=== PATIENT | male | born 1995 | race Caucasian/White ===

== ENCOUNTER 2016-12-15 23:52 | Emergency (ER) | payer BC ==
[~2016-12-15] VITALS: Ht 185.4 cm; Wt 81.8 kg
[~2016-12-15 23:52] MED LIST: NAPR-260 PO
[2016-12-15 23:56] VITALS: Ht 185.4 cm; Wt 81.8 kg
[2016-12-16 00:05] VITALS: BP 140/78; PULSE 100; RESP 24; TEMP 97.8
[2016-12-16] MEDS ORDERED: LORAZEPAM 2 MG INJ IM ONE (00:30)
--- NOTE | 2016-12-16 01:43 | ERD ---
ER Documentation Chief Complaint Date/Time DATE: 12/16/16 TIME: 01:42 Chief Complaint W/D FROM [facility], HAS RACING THOUGHTS DENIES SI/HI HPI This is a 21-year-old male says withdrawal from benzos. He states that is has racing thoughts. Denies suicidal or homicidal ideation. Denies auditory or visual hallucinations. ROS All systems reviewed and are negative except as per history of present illness. Medications Home Meds Active Scripts Naproxen* (Naprosyn*) 500 Mg Tablet, 500 MG PO BID Y for PAIN AND/OR INFLAMMATION, #20 TAB Prov:Ирина Mayfield PA-C 09/12/16 Allergies Allergies: Coded Allergies: No Known Allergy (Unverified , 08/08/16) PMhx/Soc Medical and Surgical Hx: pt denies Surgical Hx History of Surgery: No Anesthesia Reaction: No Hx Neurological Disorder: No Hx Respiratory Disorders: No Hx Cardiac Disorders: No Hx Psychiatric Problems: Yes (ANXIETY DISORDER) Hx Miscellaneous Medical Probl: No Hx Alcohol Use: Yes ("heavy drinker") Hx Substance Use: Yes (BENZO ABUSE) Hx Tobacco Use: Yes Smoking Status: Current every day smoker Physical Exam Vitals Vital Signs Date Time Temp Pulse Resp B/P Pulse Ox O2 Delivery O2 Flow Rate FiO2 12/16/16 00:05 97.8 100 24 140/78 100 Room Air 12/15/16 23:56 97.8 114 24 143/81 99 Physical Exam Const: [] Head: Atraumatic Eyes: Normal Conjunctiva ENT: Normal External Ears, Nose and Mouth. Neck: Full range of motion..~ No meningismus. Resp: Clear to auscultation bilaterally Cardio: Regular rate and rhythm, no murmurs Abd: Soft, non tender, non distended. Normal bowel sounds Skin: No petechiae or rashes Back: No midline or flank tenderness Ext: No cyanosis, or edema Neur: Awake and alert Psych: Normal Mood and Affect Results 24 hrs Current Medications Medications (Trade) Dose Ordered Sig/Cee Route PRN Reason Start Time Stop Time Status Last Admin Dose Admin Lorazepam (Ativan) 2 mg ONCE ONCE IM 12/16/16 00:30 12/16/16 00:31 DC 12/16/16 00:27 Procedures/MDM Medical decision-makin female benzodiazepine withdrawal. Patient is given Ativan here. Patient eloped prior to full treatment discharge. Upon elopement, patient was alert and oriented with goal oriented speech good decision-making capacity ability to negotiate the community. Departure Diagnosis: Primary Impression: Drug withdrawal Substance type: sedative, hypnotic or anxiolytic Qualified Code: F13.239 - Withdrawal from sedative, hypnotic, or anxiolytic drug Condition: Stable DIDI MALONE Dec 16, 2016 01:42
== END 2016-12-16 01:42 | disposition left against medical advice (07) ==
LOC: E/R 23:52
DX: F13.239 Sedative, hypnotic or anxiolytic dependence with withdrawal, unspecified (principal); F17.210 Nicotine dependence, cigarettes, uncomplicated
CPT/HCPCS: 96372; J2060; Z7502

== ENCOUNTER 2017-04-22 04:32 | Emergency (ER) | END 2017-04-22 06:26 | disposition home or self-care (01) | DX: F13.230 Sedative, hypnotic or anxiolytic dependence with withdrawal, uncomplicated (principal); F17.210 Nicotine dependence, cigarettes, uncomplicated | CPT/HCPCS: Z7502; Z7610 ==

== ENCOUNTER 2017-04-28 18:35 | Emergency (ER) | payer BC ==
[~2017-04-28] VITALS: Ht 175.3 cm; Wt 90.0 kg
[2017-04-28 18:41] VITALS: Ht 175.3 cm; Wt 90.0 kg
[2017-04-28] MEDS ORDERED: SOD CHLORIDE 0.9% 1,000 ML IV STA (18:45)
[2017-04-28 19:26] LABS: ADD SCAN DIFF NO
[2017-04-28 19:27] LABS: BASOPHIL # 0.1 10^3/ul (0.0-0.1); BASOPHILS % 0.7 % (0.0-2.0); EOSINOPHILS # 0.1 10^3/ul (0.0-0.5); EOSINOPHILS % 1.6 % (0.0-7.0); HEMOGLOBIN 13.1 g/dl (14.0-18.0); LYMPHOCYTES # 1.8 10^3/ul (0.8-2.9); LYMPHOCYTES % 22.7 % (15.0-51.0); MEAN CORPUSCULAR HEMOGLOBIN 28.7 pg (29.0-33.0); MEAN CORPUSCULAR HGB CONC 34.5 g/dl (32.0-37.0); MEAN CORPUSCULAR VOLUME 83.3 fl (82.0-101.0); MEAN PLATELET VOLUME 10.4 fl (7.4-10.4); MONOCYTE # 0.7 10^3/ul (0.3-0.9); MONOCYTES % 8.8 % (0.0-11.0); NEUTROPHIL # 5.3 10^3/ul (1.6-7.5); PLATELET COUNT 273 10^3/UL (140-415); RED BLOOD COUNT 4.56 10^6/ul (4.70-6.10); RED CELL DISTRIBUTION WIDTH 12.8 % (11.5-14.5); WHITE BLOOD COUNT 8.1 10^3/ul (4.8-10.8)
[2017-04-28 19:46] LABS: CALCIUM 9.6 mg/dl (8.4-10.2); CREATININE 0.69 mg/dl (0.61-1.24); POTASSIUM 3.8 mmol/L (3.5-5.1)
[2017-04-28] MEDS ORDERED: LORAZEPAM 2 MG INJ IV ONE (20:30)
[2017-04-28] MEDS ORDERED: LEVETIRACETAM 1000 MG (PMX) 100 ML IVPB ONE (20:30)
[2017-04-28 23:00] VITALS: BP 121/63; PULSE 96; RESP 22
--- NOTE | 2017-04-28 23:15 | ERD ---
ER Documentation Chief Complaint Date/Time DATE: 04/28/17 TIME: 23:11 Chief Complaint found on sidewalk ALOC, +ETOH, hx SZ although no witnessed sz today HPI This 21-year-old male presents emergency room with alcohol intoxication. Is brought in by paramedics for being found laying down in public office sidewalk. Patient had alcohol with him and smelled of alcohol. He states that he has seizures but is not sure if he had a seizure today. Admits to drinking for 2 hours. Denies any pain currently. Does not believe that he had any head injury. Knows that he intentionally down to try to sleep. ROS All systems reviewed and are negative except as per history of present illness. Medications Home Meds Active Scripts Naproxen* (Naprosyn*) 500 Mg Tablet, 500 MG PO BID Y for PAIN AND/OR INFLAMMATION, #20 TAB Prov:Ирина Mayfield PA-C 09/12/16 Allergies Allergies: Coded Allergies: No Known Allergy (Unverified , 08/08/16) PMhx/Soc Medical and Surgical Hx: Unable to obtain History of Surgery: No Anesthesia Reaction: No Hx Neurological Disorder: Yes (SEIZURE) Hx Respiratory Disorders: No Hx Cardiac Disorders: No Hx Psychiatric Problems: Yes (ANXIETY DISORDER) Hx Miscellaneous Medical Probl: No Hx Alcohol Use: Yes Smoking Status: Unknown if ever smoked Physical Exam Vitals Vital Signs Date Time Temp Pulse Resp B/P Pulse Ox O2 Delivery O2 Flow Rate FiO2 04/28/17 23:00 96 22 121/63 95 Room Air 04/28/17 20:38 96 20 104/55 98 Nasal Cannula 2.0 04/28/17 19:52 112 20 144/99 100 Nasal Cannula 2.0 04/28/17 18:41 98.8 118 17 113/52 98 Physical Exam Const: [] No acute distress Head: Atraumatic Eyes: Normal Conjunctiva, EOMI, PRL ENT: Normal External Ears, Nose and Mouth. Neck: Full range of motion..~ No meningismus. Resp: Clear to auscultation bilaterally Cardio: Mild regular tachycardia, no murmurs Abd: Soft, non tender, non distended. Normal bowel sounds Skin: No petechiae or rashes Back: No midline or flank tenderness Ext: No cyanosis, or edema Neur: Awake and alert and oriented 3, cranial nerves II through XII intact, appears intoxicated, slight slurred speech, cerebellar finger to nose normal Psych: Normal Mood and Affect Result Diagram: 04/28/17181404/28/171814 Results 24 hrs Laboratory Tests Test 04/28/17 18:15 04/28/17 19:32 White Blood Count 8.110^3/ul Red Blood Count 4.5610^6/ul Hemoglobin 13.1g/dl Hematocrit 38.0% Mean Corpuscular Volume 83.3fl Mean Corpuscular Hemoglobin 28.7pg Mean Corpuscular Hemoglobin Concent 34.5g/dl Red Cell Distribution Width 12.8% Platelet Count 75495^3/UL Mean Platelet Volume 10.4fl Neutrophils % 66.0% Lymphocytes % 22.7% Monocytes % 8.8% Eosinophils % 1.6% Basophils % 0.7% Nucleated Red Blood Cells % 0.0/100WBC Neutrophils # 5.310^3/ul Lymphocytes # 1.810^3/ul Monocytes # 0.710^3/ul Eosinophils # 0.110^3/ul Basophils # 0.110^3/ul Nucleated Red Blood Cells # 0.010^3/ul Sodium Level 146mmol/L Potassium Level 3.8mmol/L Chloride Level 102mmol/L Carbon Dioxide Level 21mmol/L Anion Gap 27 Blood Urea Nitrogen 8mg/dl Creatinine 0.69mg/dl Glucose Level 95mg/dl Lactic Acid Level 2.4mmol/L Calcium Level 9.6mg/dl Bedside Glucose 96mg/dL Current Medications Medications (Trade) Dose Ordered Sig/Cee Route PRN Reason Start Time Stop Time Status Last Admin Dose Admin Sodium Chloride 1,000 ml @ 1,000 mls/hr Q1H STAT IV 04/28/17 18:45 04/28/17 19:44 DC 04/28/17 19:03 Levetiracetam (Keppra 1,000mg/ 100ml (Pmx)) 100 ml @ 400 mls/hr ONCE ONCE IVPB 04/28/17 20:30 04/28/17 20:44 DC 04/28/17 20:29 Lorazepam (Ativan) 1 mg ONCE ONCE IV 04/28/17 20:30 04/28/17 20:31 DC 04/28/17 20:10 Procedures/MDM Acute alcohol intoxication. Possible seizure. Is unknown the patient actually had a seizure. Had very mild lactic acid elevation. Procedure hydrated with normal saline and loaded with Keppra 1 g. Patient became more sober and alert with time. After hours of observation was clinically sober. Stated that he felt well. Wanted to go home. No signs of trauma. Patient still has a negative neurological exam does not feel as though he had any trauma. Advising close primary care follow-up as well as strict return precautions to the ER. States that he has seizure medicine will take it when he gets home Departure Diagnosis: Primary Impression: Alcohol intoxication Additional Impression: Seizure Condition: Stable LANCE CANTOR DO Apr 28, 2017 23:15
== END 2017-04-28 23:44 | disposition home or self-care (01) ==
LOC: E/R 18:35
DX: F10.120 Alcohol abuse with intoxication, uncomplicated (principal); R56.9 Unspecified convulsions
CPT/HCPCS: 36415; 80048; 82962; 83605; 85025; 96374; 96375; J1953; J2060; J7030; Z7502

== ENCOUNTER 2017-04-29 04:14 | Emergency (ER) | payer BC ==
[~2017-04-29] VITALS: Ht 177.8 cm; Wt 86.5 kg
[2017-04-29 04:19] VITALS: Ht 177.8 cm; Wt 86.5 kg
[2017-04-29 05:15] LABS: ADD UMIC NO; UR ASCORBIC ACID NEGATIVE (NEGATIVE); UR BILIRUBIN (Dip) NEGATIVE (NEGATIVE); UR BLOOD (Dip) NEGATIVE (NEGATIVE); UR CLARITY CLEAR (CLEAR); UR COLOR YELLOW (YELLOW); UR GLUCOSE (Dip) NEGATIVE (NEGATIVE); UR KETONES (Dip) NEGATIVE (NEGATIVE); UR LEUKOCYTE ESTERASE (Dip) NEGATIVE Leu/ul (NEGATIVE); UR NITRITE (Dip) NEGATIVE (NEGATIVE); UR RBC 1 /HPF (0-5); UR SPECIFIC GRAVITY (Dip) 1.012 (1.003-1.030); UR TOTAL PROTEIN (Dip) NEGATIVE (NEGATIVE); UR UROBILINOGEN (Dip) NEGATIVE (NEGATIVE)
[2017-04-29 05:23] LABS: BARBITURATES POSITIVE (NEGATIVE); BENZODIAZEPINES NEGATIVE (NEGATIVE); CANNABINOIDS NEGATIVE (NEGATIVE); COCAINE NEGATIVE (NEGATIVE); OPIATES NEGATIVE (NEGATIVE)
[2017-04-29 05:29] LABS: ADD SCAN DIFF NO; BASOPHILS % 0.5 % (0.0-2.0); EOSINOPHILS # 0.1 10^3/ul (0.0-0.5); EOSINOPHILS % 1.3 % (0.0-7.0); HEMATOCRIT 41.1 % (42.0-52.0); HEMOGLOBIN 14.2 g/dl (14.0-18.0); LYMPHOCYTES # 2.5 10^3/ul (0.8-2.9); LYMPHOCYTES % 33.3 % (15.0-51.0); MEAN CORPUSCULAR HEMOGLOBIN 28.5 pg (29.0-33.0); MEAN CORPUSCULAR HGB CONC 34.5 g/dl (32.0-37.0); MEAN CORPUSCULAR VOLUME 82.5 fl (82.0-101.0); MEAN PLATELET VOLUME 10.3 fl (7.4-10.4); MONOCYTE # 0.7 10^3/ul (0.3-0.9); MONOCYTES % 8.5 % (0.0-11.0); NEUTROPHIL # 4.3 10^3/ul (1.6-7.5); NEUTROPHILS % 56.1 % (39.0-77.0); PLATELET COUNT 278 10^3/UL (140-415); RED BLOOD COUNT 4.98 10^6/ul (4.70-6.10); RED CELL DISTRIBUTION WIDTH 13.2 % (11.5-14.5); WHITE BLOOD COUNT 7.6 10^3/ul (4.8-10.8)
--- NOTE | 2017-04-29 05:48 | ERA ---
ER Documentation Chief Complaint Date/Time DATE: 04/29/17 TIME: 05:47 Chief Complaint pt found by security lying in west lobby; pt ALOC HPI Patient found straight line in the last lobby. Patient admits to drug use. He now says he is suicidal. Was seen earlier ROS All systems reviewed and are negative except as per history of present illness. Medications Home Meds Discontinued Scripts Naproxen* (Naprosyn*) 500 Mg Tablet, 500 MG PO BID Y for PAIN AND/OR INFLAMMATION, #20 TAB Prov:Ирина Mayfield PA-C 09/12/16 Allergies Allergies: Coded Allergies: No Known Allergy (Unverified , 08/08/16) PMhx/Soc History of Surgery: No Anesthesia Reaction: No Hx Neurological Disorder: Yes (SEIZURE) Hx Respiratory Disorders: No Hx Cardiac Disorders: No Hx Psychiatric Problems: Yes (ANXIETY DISORDER) Hx Miscellaneous Medical Probl: No Hx Alcohol Use: Yes (everyday) Smoking Status: Unknown if ever smoked Physical Exam Vitals Vital Signs Date Time Temp Pulse Resp B/P Pulse Ox O2 Delivery O2 Flow Rate FiO2 04/29/17 04:19 98.7 129 20 142/93 97 Physical Exam Const: [] Head: Atraumatic Eyes: Normal Conjunctiva ENT: Normal External Ears, Nose and Mouth. Neck: Full range of motion..~ No meningismus. Resp: Clear to auscultation bilaterally Cardio: Regular rate and rhythm, no murmurs Abd: Soft, non tender, non distended. Normal bowel sounds Skin: No petechiae or rashes Back: No midline or flank tenderness Ext: No cyanosis, or edema Neur: Awake and alert Psych: Normal Mood and Affect Results 24 hrs Laboratory Tests Test 04/29/17 04:49 Urine Color YELLOW Urine Clarity CLEAR Urine pH 6.0 Urine Specific [place] 1.012 Urine Ketones NEGATIVEmg/dL Urine Nitrite NEGATIVEmg/dL Urine Bilirubin NEGATIVEmg/dL Urine Urobilinogen NEGATIVEmg/dL Urine Leukocyte Esterase NEGATIVELeu/ul Urine Microscopic RBC 1/HPF Urine Microscopic WBC 1/HPF Urine Hemoglobin NEGATIVEmg/dL Urine Glucose NEGATIVEmg/dL Urine Total Protein NEGATIVEmg/dl Urine Opiates Screen NEGATIVE Urine Barbiturates POSITIVE Urine Amphetamines Screen NEGATIVE Urine Benzodiazepines Screen NEGATIVE Urine Cocaine Screen NEGATIVE Urine Cannabinoids NEGATIVE Procedures/MDM Patient's behavioral symptoms have stabilized while in the department. Patient is medically cleared and appropriate for psychiatric evaluation and work up. No e/o neurologic, toxic, infectious, or metabolic cause. Departure Diagnosis: Primary Impression: Acute psychosis Condition: Serious DIDI MALONE Apr 29, 2017 05:48
[2017-04-29 05:50] LABS: ALANINE AMINOTRANSFERASE 48 IU/L (13-69); ALBUMIN 5.1 g/dl (3.3-4.9); ALBUMIN/GLOBULIN RATIO 1.34; ALKALINE PHOSPHATASE 62 IU/L (42-121); ANION GAP 25 (8-16); ASPARTATE AMINO TRANSFERASE 33 IU/L (15-46); BILIRUBIN,INDIRECT 0.1 mg/dl (0-1.1); BILIRUBIN,TOTAL 0.1 mg/dl (0.2-1.3); BLOOD UREA NITROGEN 7 mg/dl (7-20); CALCIUM 9.5 mg/dl (8.4-10.2); CARBON DIOXIDE 23 mmol/L (21-31); CHLORIDE 106 mmol/L (97-110); CREATININE 0.62 mg/dl (0.61-1.24); GLUCOSE 103 mg/dl (70-220); POTASSIUM 4.1 mmol/L (3.5-5.1); SODIUM 150 mmol/L (135-144); TOTAL PROTEIN 8.9 g/dl (6.1-8.1)
[2017-04-29 05:52] LABS: ACETAMINOPHEN < 10.0 ug/ml (10.0-30.0)
[2017-04-29 05:53] LABS: SALICYLATE < 1.0 mg/dl (5.0-30.0)
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
[2017-04-29] MEDS ORDERED: LORAZEPAM 1 MG TAB PO ONE (06:30)
[2017-04-29] MEDS ORDERED: CHLORDIAZEPOXIDE 25 MG CAP PO ONE ×2 (06:30→20:30)
[2017-04-29] MEDS ORDERED: LORAZEPAM 2 MG INJ IM ONE (15:30)
[2017-04-29] MEDS ORDERED: SOD CHLORIDE 0.9% 1,000 ML IV ONE (18:00)
[2017-04-29] MEDS ORDERED: LORAZEPAM 2 MG INJ IV ONE ×2 (18:00→20:30)
[2017-04-29 21:47] VITALS: TEMP 98.4
[2017-04-29 22:54] VITALS: BP 134/72; PULSE 107; RESP 18
== END 2017-04-29 23:13 ==
LOC: E/R 04:14
DX: F29 Unspecified psychosis not due to a substance or known physiological condition (principal); R07.9 Chest pain, unspecified
CPT/HCPCS: 80053; 80306; 80307; 81003; 85025; 93005; J2060; J7030; Z7610; 36415; 96361; 96372; 96374; 96376